=== PATIENT | female | born 1950 | race Caucasian/White ===

== ENCOUNTER 2017-01-22 07:45 | Day surgery (SDC) | payer MEDICARE ==
[2017-01-20 08:49] VITALS: BMI 35.9
[~2017-01-22 07:45] MED LIST: LACTATED RINGERS 1,000 ML IV SCH
[2017-01-22 08:20] VITALS: RESP 16; TEMP 98.3
[2017-01-22] MEDS ORDERED: LIDOCAINE 1% 20 ML VIAL (10MG/ML) FOR IV START INTRADERMA ONE (08:35)
[2017-01-22 08:38] LABS: Glucose,Whole Blood 160 mg/dL (75-99)
[2017-01-22] MEDS ORDERED: PROPOFOL 10 MG/ML 20 ML VIAL IV ONE (08:49)
[2017-01-22] MEDS ORDERED: LIDOCAINE 1% INJ 10MG/ML (20 ML MDV) ONE (08:49)
[2017-01-22] MEDS ORDERED: ONABOTULINUMTOXINA 100 UNIT VIAL MISCELLANE ONE ×2 (09:00→09:15)
--- NOTE | 2017-01-22 09:21 | P.PCN ---
Date of Procedure: 01/22/17 Preoperative Diagnosis: Postoperative Diagnosis: Procedure(s) Performed: BRIEF HISTORY: Patient is a 66-year-old, pleasant, white female, scheduled for an upper endoscopy as a part of evaluation of progressive dysphagia to solids and liquids for the last 3 months duration. The patient has been diagnosed with hypertensive lower esophageal sphincter and she presented with dysphagia almost 10 years ago. Since then she has been having upper endoscopy with Botox injection of the lower esophageal sphincter on a yearly basis. Her last one was done about 10 months ago. Recently her symptoms have been progressively getting worse and he started having the symptoms 3 months after her last procedure. She is hence scheduled for repeat upper endoscopy with Botox injection and if no improvement in symptoms we'll consider proceeding with esophageal manometry to evaluate further PROCEDURE PERFORMED: Esophagogastroduodenoscopy with biopsy and Botox injection of the lower esophageal sphincter. PREOPERATIVE DIAGNOSIS: Dysphagia/hypertensive lower esophageal sphincter. IV sedation per anesthesia. PROCEDURE: After informed consent was obtained, the patient was brought into the endoscopy unit. IV sedation was administered by Anesthesia under continuous monitoring. Initially the Olympus GIF-140 video endoscope was inserted into the mouth. Esophagus intubated without any difficulty. It was gradually advanced into the stomach and duodenum and carefully examined. The bulb and the second part of the duodenum appeared normal. The scope at this time was withdrawn to the stomach, adequately insufflated with air, and upon careful examination, mucosa of the antrum, body, cardia and the fundus appeared normal. The scope was then withdrawn into the esophagus. The GE junction was located at 43 cm from the incisors. There was a superficial ulceration noted at the GE junction and this was biopsied. Also lower esophagus and appeared very tight as could be could be advanced into the stomach with some gentle pressure. At this time proceeded with injection of Botox and total of 100 units a was injected in 4 different quadrants using a scleral therapy needle. The rest of the esophagus appeared normal. There were no erosions or ulcerations seen and the patient tolerated the procedure well. IMPRESSION: 1. Tight lower esophageal sphincter status post Botox injection as described above. 2. 1 centimeter superficial ulceration at the GE junction status post biopsy. RECOMMENDATIONS: The findings of this examination were discussed with the patient as well as her family. She was advised to follow with the biopsy results.. She will be started on Prilosec 20 mg twice daily and she'll be seen in the office in 4 weeks. If she continues to have persistent symptoms we'll consider proceeding with repeat esophageal manometry to evaluate further Implants: Indications for Procedure: Operative Findings: Description of Procedure:
[2017-01-22 09:51] VITALS: BP 130/85; PULSE 92
== END 2017-01-22 10:02 | disposition home or self-care (01) ==
LOC: ORWHC2ENDO 07:45
PROVIDERS: ATTEND Internal Medicine Gastroenterology
DX: K22.4 Dyskinesia of esophagus (principal); K20.9 Esophagitis, unspecified; K22.2 Esophageal obstruction; R13.10 Dysphagia, unspecified; G47.33 Obstructive sleep apnea (adult) (pediatric); E11.9 Type 2 diabetes mellitus without complications; E07.9 Disorder of thyroid, unspecified; Z79.84 Long term (current) use of oral hypoglycemic drugs; Z79.899 Other long term (current) drug therapy; Z79.891 Long term (current) use of opiate analgesic; Z88.0 Allergy status to penicillin
CPT/HCPCS: 88305; 43239; 43236; J2001; J0585; J2704; 43243

== ENCOUNTER → 2017-11-13 | Day surgery (SDC) | payer MEDICARE ==
[2017-11-12 15:02] VITALS: BMI 31.9
[2017-11-13 12:48] VITALS: BP 123/77; PULSE 83; RESP 20; TEMP 97.4
[2017-11-13 12:53] LABS: Glucose,Whole Blood 136 mg/dL (75-99)
--- NOTE | 2017-12-16 14:10 | PCN ---
PROCEDURE NOTE DATE OF PROCEDURE: 11/13/2017 REQUESTING PHYSICIAN: Dr. Sharmin Zhang. BRIEF HISTORY: Patient is a 67-year-old pleasant white female, scheduled for a high-resolution esophageal manometry as a part of evaluation of progressive dysphagia to solids and liquids for the last several years duration. The patient initially presented with these symptoms in 2001 and she underwent an esophageal manometry which revealed hypertensive lower esophageal sphincter with normal peristalsis. The patient since then has been undergoing upper endoscopy with Botox injection of the lower esophageal sphincter periodically averaging once every year. She has been doing reasonably well. However, for the last 2 years, she has been having progressively worsening symptoms with dysphagia to liquids and solids and her last upper endoscopy with Botox injection was performed 3 months ago with no improvement in her symptoms. She is hence scheduled for a high-resolution esophageal manometry to evaluate further. PROCEDURE PERFORMED: High-resolution impedance manometry. FINDINGS: 1. Lower esophageal sphincter A: Median IRP 70 mmHg, mean residual pressure 46 mmHg, EGJ phenotype type 1. 2. Lower esophageal body: Mean DCI 1894 mmHg, peristaltic contractions 0%. There is evidence of isopressurization noted involving all the swallows. 3. Bolus transit with liquids 0%, bolus transit with viscous 0%. INTERPRETATION: The above esophageal impedance manometry shows evidence of significantly increased integral residual pressures of the lower esophageal sphincter with aperistalsis involving the esophageal body. Also, there was evidence of isopressurization noted with all swallows with liquids as well as viscous face and above criteria are consistent with esophageal achalasia/type 2. MMODL / IJN: [id number] /
== END ==
LOC: ORWHC2ENDO 11:53
PROVIDERS: ATTEND Internal Medicine Gastroenterology
DX: R13.10 Dysphagia, unspecified (principal)
CPT/HCPCS: 91010

== ENCOUNTER → 2020-02-28 | Outpatient (CLI) | payer MEDICARE ==
--- NOTE | 2020-02-29 10:59 | MM ---
Reason for exam: clinical finding. History: Patient is postmenopausal, history of other cancer, and is nulliparous. Physical Findings: Nurse did not find any significant physical abnormalities on exam. MG 3D Diag Mammo W/Cad CAIN Bilateral CC and MLO view(s) were taken. The breast tissue is heterogeneously dense. This may lower the sensitivity of mammography. There are benign appearing round calcifications in the right breast. There is no discrete abnormality. These results were verbally communicated with the patient and result sheet given to the patient on 02/28/20. ASSESSMENT: Benign, BI-RAD 2 RECOMMENDATION: Routine screening mammogram of both breasts in 1 year. Manage on a clinical basis with regard to left pain.
== END | disposition home or self-care (01) ==
LOC: RADMAMWWP 13:48
PROVIDERS: ATTEND Family Medicine
DX: N64.4 Mastodynia (principal)
CPT/HCPCS: 77066; G0279; 77062